=== PATIENT | female | born 1985 | race Asian ===

== ENCOUNTER 2017-03-03 09:37 | Emergency (ER) | payer OTHER ==
[~2017-03-03] VITALS: Ht 152.4 cm; Wt 42.0 kg
[2017-03-03] MEDS ORDERED: AMOX250C3 PO (10:15)
[2017-03-03 10:27] LABS: BASO % 0.1 %; BASO ABS # 0.01 K/uL (0-0.2); COMPLETE YES; EOS % 0.1 %; HEMATOCRIT 40.2 % (37-47); IG% 0.2 %; LYMPH % 12.3 %; MEAN CELL VOLUME 94.8 fL (80-100); MEAN CORPUSCULAR HEMOGLOBIN 31.6 pg (25-34); MEAN CORPUSCULAR HGB CONC 33.3 g/dl (32-36); MONO % 6.5 %; NEUT % 80.8 %; PLATELET COUNT 259 K/uL (130-400); RED BLOOD COUNT 4.24 M/uL (4.2-5.4); WHITE BLOOD COUNT 8.12 K/uL (4.8-10.8)
[2017-03-03 10:45] LABS: ALT/SGPT 17 U/L (12-78); BLOOD UREA NITROGEN 11 mg/dl (7-18); BUN/CREATININE RATIO 9.9 (10-20); CALCIUM 9.2 mg/dl (8.5-10.1); CARBON DIOXIDE 29 mmol/L (21-32); CHLORIDE 100 mmol/L (98-107); CREATININE 1.08 mg/dl (0.60-1.20); GLUCOSE 111 mg/dl (70-99); MAGNESIUM 2.3 mg/dl (1.8-2.4); POTASSIUM 3.5 mmol/L (3.5-5.1); SODIUM 137 mmol/L (136-145)
[2017-03-03 10:48] LABS: ALB/GLOB RATIO 1.1 (0.9-2); ALKALINE PHOSPHATASE 70 U/L (45-117); AST/SGOT 18 U/L (15-37)
[2017-03-03 11:02] VITALS: Ht 152.4 cm; Wt 42.0 kg
[2017-03-03 11:33] VITALS: TEMP 37.3
--- NOTE | 2017-03-03 12:21 | DIAGNOSTIC IMAGING REPORT ---
RETROPERITONEAL COMPLETE CLINICAL HISTORY: L flank pain, hx stone nephrocalcinosis TECHNIQUE: Ultrasound COMPARISON STUDY: None FINDINGS: Moderate left renal hydronephrosis. 1.6 x 0.8 cm obstructing calculus proximal left ureter. Maximum linear dimension left kidney 11 cm. Right kidney is normal with a maximum dimension of 9.5 cm. IMPRESSION: Obstructing calculus proximal left ureter with measurements as noted. Moderate left hydronephrosis. The above report was generated using voice recognition software. It may contain grammatical, syntax or spelling errors. Electronically signed by: Dajuan Lopes M.D. 03/03/2017 12:20 PM Dictated Date/Time: 03/03/2017 12:19 PM
[2017-03-03 13:11] LABS: URINE APPEARANCE CLEAR (CLEAR); URINE BILIRUBIN NEG (NEG); URINE COLOR YELLOW; URINE EPITHELIAL CELL AUTO 20-30 /lpf (0-5); URINE NITRITE NEG (NEG); UROBILINOGEN NEG (NEG); ZZUR CULT IF INDIC CLEAN CATCH NO
[2017-03-03 13:12] LABS: MANUAL MICROSCOPIC REQUIRED? NO; REVIEW REQ? NO
[2017-03-03] MEDS ORDERED: HYDR-5688 PO (13:32)
[2017-03-03] MEDS ORDERED: ONDA4TAB10 SL (13:32)
[2017-03-03] MEDS ORDERED: TAMS0.4C38 PO (13:32)
--- NOTE | 2017-03-03 13:33 | EMERGENCY ROOM VISIT NOTE ---
History First contact with patient: 09:55 Chief Complaint: ABDOMINAL PAIN Stated Complaint: ABD AND BACK PAIN, NASUE[place], POSSIBLE KIDNEY STONE Nursing Triage Summary: Pt states that she has been having pain in her left flank since Monday. On Monday the pt started to have severe pain on her left side that radiated from her lower left quadrant to her left armpit. Pt states she does have a history of Kidney stones. Pt stated that the pain became less severe throughout the week. The pain started to increase yesterday. Pt denies any problems with urination. Pt does hae nausea no vomiting. History of Present Illness The patient is a 31 year old female who presents to the Emergency Room via private vehicle with complaints of "abdominal and back pain, nausea, possible kidney stone". The patient is able to speak very little [place], but able to speak enough that her and her friend are able to give an accurate history. She states that this past Monday she developed left-sided flank pain and felt very sore. She states that it was from her left armpit to her waist. She states that now is down lower in the left flank and in the abdominal region. She denies any shortness of breath but is concerned that she may have a kidney stone that she had one in the past. There is no urinary symptoms. She denies chance of . She rates her overall pain as a 10/10. Review of Systems A complete 10-point Review of Systems was discussed with the patient, with pertinent positives and negatives listed in the History of Present Illness. All remaining Review of Systems questions can be considered negative unless otherwise specified. Past Medical/Surgical History Renal Calculi Family History No pertinent. Social History Patient lives locally. Current/Historical Medications Scheduled Amoxicillin (Amoxil), 2 CAP PO UD Ondasetron Odt (Zofran Odt), 4 MG SL Q6H Tamsulosin Hcl (Flomax), 0.4 MG PO DAILY Scheduled PRN Hydrocodone/Acetaminophen 5MG/325MG ([place] 5MG/325MG), 1 TABLET PO Q6 PRN for Pain Physical Exam Vital Signs Date Time Temp Pulse Resp B/P (MAP) Pulse Ox O2 Delivery O2 Flow Rate FiO2 03/03/17 13:55 65 18 124/73 98 03/03/17 12:16 72 18 114/69 96 Room Air 03/03/17 11:33 37.3 61 16 124/78 99 Room Air 03/03/17 09:40 37.0 72 16 111/77 96 Room Air Physical Exam VITAL SIGNS - Vital signs and nursing notes were reviewed. Stable. Afebrile. GENERAL -31-year-old female appearing her stated age who is in no acute distress. Communicates well with provider and answers questions appropriately. SKIN - Without rashes. No petechiae or rashes. HEAD - NC/AT. EYES -Sclera anicteric. EARS - No deformities of external structures noted on gross examination bilaterally. LUNGS - Chest wall symmetric without accessory muscle use, intercostals retractions, or central cyanosis. Normal vesicular breath sounds CTA B/L. No wheezes, rales, or rhonchi appreciated. CARDIAC - RRR with S1/S2. No murmur, rubs, or gallops appreciated. ABDOMEN - Abdominal contour normal without pulsations or visible masses. Left flank CVA tenderness as well as left abdominal tenderness noted. BS normoactive all four quadrants. No palpable masses, hepatosplenomegaly, or ascites noted. Medical Decision & Procedures ER Provider Diagnostic Interpretation: RETROPERITONEAL COMPLETE CLINICAL HISTORY: L flank pain, hx stone nephrocalcinosis TECHNIQUE: Ultrasound COMPARISON STUDY: None FINDINGS: Moderate left renal hydronephrosis. 1.6 x 0.8 cm obstructing calculus proximal left ureter. Maximum linear dimension left kidney 11 cm. Right kidney is normal with a maximum dimension of 9.5 cm. IMPRESSION: Obstructing calculus proximal left ureter with measurements as noted. Moderate left hydronephrosis. The above report was generated using voice recognition software. It may contain grammatical, syntax or spelling errors. Electronically signed by: Dajuan Lopes M.D. 03/03/2017 12:20 PM Dictated Date/Time: 03/03/2017 12:19 PM Laboratory Results 03/03/17 10:00 Red Blood Count 4.24, Mean Corpuscular Volume 94.8, Mean Corpuscular Hemoglobin 31.6, Mean Corpuscular Hemoglobin Concent 33.3, Mean Platelet Volume 9.0, Neutrophils (%) (Auto) 80.8, Lymphocytes (%) (Auto) 12.3, Monocytes (%) (Auto) 6.5, Eosinophils (%) (Auto) 0.1, Basophils (%) (Auto) 0.1, Neutrophils # (Auto) 6.55, Lymphocytes # (Auto) 1.00, Monocytes # (Auto) 0.53, Eosinophils # (Auto) 0.01, Basophils # (Auto) 0.01 03/03/17 10:00 Test 03/03/17 10:00 03/03/17 12:50 White Blood Count 8.12 K/uL (4.8-10.8) Red Blood Count 4.24 M/uL (4.2-5.4) Hemoglobin 13.4 g/dL (12.0-16.0) Hematocrit 40.2 % (37-47) Mean Corpuscular Volume 94.8 fL (80-100) Mean Corpuscular Hemoglobin 31.6 pg (25-34) Mean Corpuscular Hemoglobin Concent 33.3 g/dl (32-36) Platelet Count 259 K/uL (130-400) Mean Platelet Volume 9.0 fL (7.4-10.4) Neutrophils (%) (Auto) 80.8 % Lymphocytes (%) (Auto) 12.3 % Monocytes (%) (Auto) 6.5 % Eosinophils (%) (Auto) 0.1 % Basophils (%) (Auto) 0.1 % Neutrophils # (Auto) 6.55 K/uL (1.4-6.5) Lymphocytes # (Auto) 1.00 K/uL (1.2-3.4) Monocytes # (Auto) 0.53 K/uL (0.11-0.59) Eosinophils # (Auto) 0.01 K/uL (0-0.5) Basophils # (Auto) 0.01 K/uL (0-0.2) RDW Standard Deviation 40.8 fL (36.4-46.3) RDW Coefficient of Variation 12.0 % (11.5-14.5) Immature Granulocyte % (Auto) 0.2 % Immature Granulocyte # (Auto) 0.02 K/uL (0.00-0.02) Anion Gap 7.0 mmol/L (3-11) Estimated GFR () 80.3 Estimated GFR (Non- 69.3 BUN/Creatinine Ratio 9.9 (10-20) Calcium Level 9.2 mg/dl (8.5-10.1) Magnesium Level 2.3 mg/dl (1.8-2.4) Total Bilirubin 0.6 mg/dl (0.2-1) Aspartate Amino Transf (AST/SGOT) 18 U/L (15-37) Alanine Aminotransferase (ALT/SGPT) 17 U/L (12-78) Alkaline Phosphatase 70 U/L (45-117) Total Creatine Kinase 71 U/L (26-192) Total Protein 8.6 gm/dl (6.4-8.2) Albumin 4.5 gm/dl (3.4-5.0) Globulin 4.1 gm/dl (2.5-4.0) Albumin/Globulin Ratio 1.1 (0.9-2) Urine Color YELLOW Urine Appearance CLEAR (CLEAR) Urine pH 7.0 (4.5-7.5) Urine Specific Virgie 1.010 (1.000-1.030) Urine Protein NEG (NEG) Urine Glucose (UA) NEG (NEG) Urine Ketones NEG (NEG) Urine Occult Blood TRACE (NEG) Urine Nitrite NEG (NEG) Urine Bilirubin NEG (NEG) Urine Urobilinogen NEG (NEG) Urine Leukocyte Esterase NEG (NEG) Urine WBC (Auto) 1-5 /hpf (0-5) Urine RBC (Auto) 0-4 /hpf (0-4) Urine Hyaline Casts (Auto) 0 /lpf (0-5) Urine Epithelial Cells (Auto) 20-30 /lpf (0-5) Urine Bacteria (Auto) NEG (NEG) Urine Test NEG (NEG) Medical Decision Patient was seen and evaluated as above. She presents to us today with left- sided flank pain. Ultrasound was obtained. Large ureteral calculus noted. She declined pain medication. IV access was initiated, and the above workup was performed. No leukocytosis, concerning anemia, or evidence of kidney failure. She was offered pain meds many times but declined. Urinalysis reveals a small amount of blood otherwise negative. test negative. She has a history of kidney stones. She was offered to stay in the hospital for this but declined. I certainly believe the follow-up with urology is important patient is to call as soon as possible. The patient will be discharged home on Zofran for nausea, Flomax in the event that this may help dilate the ureter slightly, as well as oxycodone for her pain. After the patient was dispositioned a did attempt to set up an appointment with her for urology however the office by that point was closed. Our telephonic case manager will help attempt to set up an appointment with the patient on Monday morning. The patient was thoroughly educated if her symptoms were to worsen or if her pain is not controlled she certainly to return. This is a large stone and I suspect she will likely need intervention by urologist to help this. She was educated upon worrisome symptoms which to return, had questions about discharge, and was discharged home in good condition. In evaluation treatment this patient following differential diagnoses were entertained: UTI, ureteral calculi, appendicitis, diverticulitis, ovarian torsion, PE, HI, among others. Impression Primary Impression: Ureteral stone with hydronephrosis Departure Information Dispostion Home / Self-Care Condition GOOD Prescriptions Hydrocodone/Acetaminophen 5MG/325MG ([place] 5MG/325MG) Tab 1 TABLET PO Q6 Y for Pain, #12 TAB For Initial Treatment Prov: Black Serrano PA-C 03/03/17 Ondasetron Odt (ZOFRAN ODT) 4 Mg Tab 4 MG SL Q6H for Nausea, #10 TAB Prov: Black Serrano PA-C 03/03/17 Tamsulosin Hcl (FLOMAX) 0.4 Mg Cap 0.4 MG PO DAILY for 7 Days, #7 CAP Prov: Black Serrano PA-C 03/03/17 Referrals No Doctor, Assigned (PCP) Hola Mcgovern MD Patient Instructions My [facility] Additional Instructions You have been treated in the Emergency Department today for a Kidney Stone ( Nephrolithiasis). You have received pain medicine in the emergency department which impairs your ability to operate a vehicle. It is illegal for you to drive after receiving these medicines. You have been prescribed NORCO to be used for pain control. This is a narcotic medication. You cannot drive or consume alcohol while on this medicine. This medicine should only be used for pain that cannot be controlled with over-the- counter pain medicines. NO TYLENOL (ACETAMINOPHEN) With this!!!! You have been prescribed Zofran to be used for any nausea or vomiting. Take as prescribed. You have been prescribed Flomax 0.4 mg to be taken ONCE daily. This medicine has been prescribed as it can help relax the smooth muscles of the urinary tract increasing transit time of the kidney stone. For pain control, you can use the following [id number] medicines: - Regular strength (200 mg/tab) Advil (ibuprofen) 1-2 tabs every 4-6 hours as needed. Do not exceed a dose of 3200 mg per day. You have been provided a strainer and specimen collection cup. You should strain your urine to collect any passed stones. Your stones can be placed into the specimen cup and taken to your Urologist for further evaluation. You have been provided the contact information for the on-call Urologist. You should contact the Urologist's office tomorrow to establish a follow-up appointment from today's Emergency Department visit. Return to the Emergency Department if your symptoms persist despite the treatment plan outlined above or if you develop the following symptoms: intractable pain, fever, chills, or large amounts of blood in your urine.
[2017-03-03 13:55] VITALS: BP 124/73; PULSE 65; O2SAT 98
== END 2017-03-03 13:57 | disposition home or self-care (01) ==
LOC: C.EDB 09:41 → C.EDC 13:57
DX: N13.2 Hydronephrosis with renal and ureteral calculous obstruction (principal); Z87.442 Personal history of urinary calculi